=== PATIENT | female | born 1935 | race Caucasian/White ===

== ENCOUNTER 2018-06-22 14:27 | Emergency (ER) | payer MEDICARE, BC, SELFPAY ==
--- NOTE | 2018-06-22 14:31 | W.ED.GENAD ---
Discharge Plan Disposition Patient Disposition: HOME Condition: Good Discharge Details Chief Complaint: Orthopedic Clinical Impression: Right wrist sprain Primary Care Provider: MARCIA LLANOS ED Provider: Michael Pendleton Home Meds and New Rx's Prescriptions: No Action atenolol 25 MG tablet 258 mg PO BID RF: 0 amitriptyline 25 MG tablet 50 mg PO HS RF: 0 ascorbate calcium 500 MG tablet 500 mg PO DAILY RF: 0 multivitamin 1 EACH capsule 1 tab PO DAILY RF: 0 Discharge Instructions Instructions: Wrist Sprain (ED) Additional Instructions: Please take Tylenol and Motrin for pain, please use ice every 15 minutes. Please use the wrist splint as directed. We will contact orthopedics for close follow-up, we will need to be seen and reassessed within the next 2 weeks for repeat evaluation and potential repeat x-ray imaging if you have no improvement of your pain or symptoms. If you notice any worsening of your symptoms, or any new symptoms such as vomiting, diarrhea, fever, chills, shortness of breath, chest pain, numbness, weakness, or fainting , please return immediately to the emergency department for reevaluation. Please follow up with your primary care provider as soon as possible for reassessment and reevaluation. As always, it was a pleasure participating in your medical care today. Referrals: MARCIA LLANOS [Primary Care Provider] - Medical Decision Making This is a very pleasant 82-year-old female who presents for evaluation of right first metacarpal pain after hitting it yesterday on a table. It saved her from a fall. Exam shows no signs of trauma aside for on the hand. Notable limitation of movement of the thumb secondary to pain, notable swelling around the first metacarpal. No blood thinners. We will get an x-ray to evaluate for fracture. We will give Tylenol and Motrin for pain control. 2:58 PM X-ray results have returned, and there are notable osteophytes and chronic degenerative changes over the area of trauma. Because of this I did contact the radiologist Dr. 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 No signs of a significant scaphoid fracture.. I will place the patient in a thumb spica, will also arrange orthopedic follow-up on an outpatient basis for reassessment and repeat radiographs after 1-2 weeks of conservative management. I have extensively reviewed the treatment plan and discharge instructions with the patient. I have addressed all patient concerns at this time. The patient was made aware of what symptoms to monitor for that would warrant a return to the emergency department. Discussed the plan with the patient, they demonstrate verbal understanding and agreement with our assessment and plan at this time. HPI General Date/Time Provider Initiated Documentation: 06/22/18 14:31. HPI Narrative: This is an 82-year-old female with a past medical history of hypertension, who presents today for evaluation after a fall. She is right-hand dominant. patient states that yesterday she was walking and tripped, and she threw her hand forward striking a table with her right wrist over the metacarpal of the thumb and the right hand. This caught her fall and saved her from falling or hitting her head, and a cause no other trauma anywhere else. She had mild pain at the area, and had been taking some aspirin, however this morning she noted significant swelling, and significant worsening of pain. She came to the ER for further evaluation. She denies any blood thinner use aside for the aspirin. She denies any history of recent trauma or surgery aside for this event. She denies any pain in the rest of her hand, or her forearm. Pain is made worse with movement of the thumb, and movement of the thumb is notably limited secondary to the pain. She denies any numbness or tingling. She has no other complaints at this Related Data Home Medications Medication Instructions Recorded Confirmed amitriptyline 50 mg PO HS 02/15/13 02/15/13 ascorbate calcium 500 mg PO DAILY 02/15/13 02/15/13 atenolol 258 mg PO BID 02/15/13 02/15/13 multivitamin 1 tab PO DAILY 02/15/13 02/15/13 Allergies Allergy/AdvReac Type Severity Reaction Status Date / Time No Known Allergies Allergy Unverified 06/22/18 14:46 Review of Systems Review of Systems All systems reviewed & are unremarkable except as noted in HPI and below PFSH Social History Smoking and Tabacco status: Never Exam Narrative Exam Narrative: 1.Const: Well-nourished, Well-developed, appearing stated age 2.Eyes: PERRL, no conjunctival injection, and symmetrical lids. 3.ENT: Atraumatic external nose and ears. Moist MM. Neck: Symmetric, trachea midline, No thyromegaly. 4.CVS: +S1/S2, No murmurs or gallops. Peripheral pulses 2+ and equal in all extremities. Brisk capillary refill in all extremities. 5.RESP: Unlabored respiratory effort. Clear to auscultation bilaterally. No wheezes rales or rhonchi 6.GI: Soft, Nontender/Nondistended, No hepatosplenomegaly. No guarding or rebound. 7.MSK: No cyanosis or clubbing, notable swelling over the first metacarpal on the right hand. Notable pain with palpation as well as some mild pain over the anatomic snuffbox. flexion extension abduction and abduction is notably limited for the thumb secondary to pain. No pain at the interphalangeal joint, normal flexion extension at the joint. Brisk capillary refill, normal sensation including two-point discrimination on all fingers. No other significant abnormalities for the rest of the hand. No pain in the rest of the wrist or the other metacarpals. 8.Skin: Warm, Dry. No rashes or lesions. 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 Sensation grossly intact, no focal neurologic deficits. 10.Psych: (AAO) x3. Appropriate mood and affect
[2018-06-22 14:37] VITALS: BP 157/68; PULSE 60; RESP 16; TEMP 37; O2SAT 98
[2018-06-22] MEDS: Ibuprofen 800 MG TAB 600 MG PO (14:42)
[2018-06-22] MEDS: Acetaminophen 500 MG TAB 1000 MG PO (14:42)
--- NOTE | 2018-06-22 14:52 | DI.RAD_ITS ---
SYMPTOMS/DIAGNOSIS: PAIN, SWELLING THUMB METACARPALS RIGHT WRIST: Three views were obtained. There are severe degenerative changes involving the greater multangular first metacarpal joint. No acute fracture seen.
[2018-06-22 15:10] VITALS: BP 157/68; PULSE 60; RESP 16; TEMP 37; O2SAT 98
== END 2018-06-22 15:05 | disposition home or self-care (01) ==
LOC: ER 15:28
PROVIDERS: Emergency Provider Student in an Organized Health Care Education/Training Program; PCP Internal Medicine
DX: S63.501A Unspecified sprain of right wrist, initial encounter (principal); W01.198A Fall on same level from slipping, tripping and stumbling with subsequent striking against other object, initial encounter
CPT/HCPCS: 99283; 73110; 99282; L3807

== ENCOUNTER → 2018-06-29 10:51 | Outpatient (BNVA) | payer MEDICARE, BC, SELFPAY | PROVIDERS: PCP Internal Medicine; Referring Provider Internal Medicine; Visit Provider Orthopaedic Surgery | DX: M18.11 Unilateral primary osteoarthritis of first carpometacarpal joint, right hand (principal) | CPT/HCPCS: 99201; 99213 ==

== ENCOUNTER → 2018-07-20 10:55 | Outpatient (BNVA) | payer MEDICARE, BC, SELFPAY | PROVIDERS: PCP Internal Medicine; Referring Provider Internal Medicine; Visit Provider Orthopaedic Surgery | DX: M18.11 Unilateral primary osteoarthritis of first carpometacarpal joint, right hand (principal) | CPT/HCPCS: 99211; 99212 ==

== ENCOUNTER 2018-09-28 12:49 | Outpatient (CLI) | payer MEDICARE, BC, SELFPAY ==
[2018-09-28 14:09] LABS: Bilirubin Negative (Negative); Blood Small (Negative); Clarity Sl Cloudy; Glucose Negative (Negative); Ketones Negative (Negative); Leukocyte Esterase Moderate (Negative); Nitrite Negative (Negative); Urobilinogen 0.2 EU/dL (Up TO 0.2)
[2018-09-28 14:42] LABS: C & S Indicated? Yes; WBC >50 HPF (0-5)
== END 2018-09-28 13:09 ==
PROVIDERS: PCP Internal Medicine; Visit Provider Internal Medicine Geriatric Medicine
DX: R39.198 Other difficulties with micturition (principal)
CPT/HCPCS: 87077; 81003; 81015; 87086

== ENCOUNTER 2018-12-26 12:15 | Emergency (ER) | payer MEDICARE, BC, SELFPAY ==
[2018-12-26 12:23] VITALS: PULSE 57; RESP 16; TEMP 36.6; O2SAT 98
[2018-12-26 12:26] VITALS: RESP 15
[2018-12-26 12:27] VITALS: BP 158/88
--- NOTE | 2018-12-26 12:45 | ED.GENADUL_ITS ---
Discharge Plan Disposition Patient Disposition: HOME Condition: Stable Discharge Details Chief Complaint: GenMedical Clinical Impression: Epistaxis Primary Care Provider: Elise Aguilera ED Provider: Deion Ponce Home Meds and New Rx's Prescriptions: New oxymetazoline [Afrin Sinus (oxymetazoline)] 0.05 % spray,non-aerosol 2 spray ABUNDIO Q12H 3 Days RF: 0 No Action aspirin [Adult Aspirin Regimen] 81 mg tablet,delayed release (DR/EC) 81 mg PO DAILY RF: 0 atenolol 25 MG tablet 25 mg PO BID RF: 0 amitriptyline 25 MG tablet 50 mg PO HS RF: 0 ascorbate calcium (vitamin C) 500 MG tablet 500 mg PO DAILY RF: 0 multivitamin 1 EACH capsule 1 tab PO DAILY RF: 0 Discharge Instructions Instructions: Nosebleed (ED) Medical Decision Making 83 yo female with hx of htn on 81mg asa daily comes in with intermittent right nose bleed since last night, denies any symptoms to suggest signfiicant anemia such as weakness, lightheaded/dizziness, chest pain or sob. She has slow oozing from the left nare on exam, will place nasal clamp for 10-15 minutes and if not improving try other therpaies to control the bleeding bleeding ceased with nasal clamp and has some eryrthema of anterior nose but no focal source of bleeding. Will prescribe afrin and have him f/u with ENT and return if bleeding recurs and uncontrolled with nasal clamp Differential Diagnosis anterior vs posterior epistaxis HPI General Mode of arrival: ambulatory . Date/Time Provider Initiated Documentation: 12/26/18 12:26 . Limitations to Documentation: no limitations . Information obtained by: patient . History of Present Illness 83 year old F presents to the emergency department with the chief complaint of nose bleed, described as moderate, Patient started experiencing this day(s) (1) and it has been constant. No relieving factors improve symptom(s), No exacerbating factors reported . Patient notes no other symptoms.. Patient did receive the following treatments prior to arrival, none Related Data Home Medications Medication Instructions Recorded Confirmed amitriptyline 50 mg PO HS 02/15/13 12/26/18 ascorbate calcium (vitamin C) 500 mg PO DAILY 02/15/13 12/26/18 atenolol 25 mg PO BID 02/15/13 12/26/18 multivitamin 1 tab PO DAILY 02/15/13 12/26/18 aspirin 81 mg tablet,delayed 81 mg PO DAILY 06/29/18 12/26/18 release oxymetazoline [Afrin Sinus 2 spray ABUNDIO Q12H 3 Days ml 12/26/18 (oxymetazoline)] Previous Rx's Medication Instructions Recorded oxymetazoline [Afrin Sinus 2 spray ABUNDIO Q12H 3 Days ml 12/26/18 (oxymetazoline)] Allergies Allergy/AdvReac Type Severity Reaction Status Date / Time No Known Allergies Allergy Unverified 07/20/18 11:03 General Stated Complaint: GenMedical MIGUEL ANGEL: 4 Review of Systems Review of Systems All systems reviewed & are unremarkable except as noted in HPI and below Constitutional Denies chills, Denies fever(s) and Denies weakness Cardiovascular Denies chest pain and Denies dyspnea Respiratory Denies cough and Denies dyspnea Gastrointestinal Denies abdominal pain, Denies nausea and Denies vomiting Integumentary/Breasts Denies rash Neurologic Denies weakness PFSH Social History Smoking/Tobacco Use Status: Never Alcohol Intake: never Drug use: Never Substance use type: does not use Do you feel safe in your relationship?: Yes Exam Const General: no acute distress Orientation: alert HENMT Head: normal to inspection Ears: external ears normal General nose exam: epistaxis Mouth: moist mucous membranes Eyes General: appearance normal, both eyes and all related structures Neck Neck: normal visual inspection Resp Effort & Inspection: normal respiratory effort and able to speak in complete sentences Cardio Rate: regular rate Skin General skin exam: no rashes or lesions noted Neuro General: alert and oriented x3 Extrem General: normal to inspection Psych Mental Status: mental status grossly normal Course Vital Signs Temperature 36.6 C 12/26/18 12:23 Pulse 57 L 12/26/18 12:23 Respiratory Rate 16 12/26/18 12:23 Pulse Oximetry 98 12/26/18 12:23 Temperature 36.6 C 12/26/18 12:23 Temperature Source Skin 12/26/18 12:23 Pulse 57 L 12/26/18 12:23 Respiratory Rate 15 12/26/18 12:26 Respiratory Effort 12/26/18 12:26 Respiratory Pattern Normal 12/26/18 12:26 Blood Pressure 158/88 H 12/26/18 12:27 Blood Pressure Position Sitting 12/26/18 12:23 Pulse Oximetry 98 12/26/18 12:23
--- NOTE | 2018-12-28 10:58 | NUR.NOTE ---
Nursing Note: Faxed to [facility] – [place], [place] PCP the MD note. Shakila Kennedy [phone] p to Kary
== END 2018-12-26 13:14 | disposition home or self-care (01) ==
PROVIDERS: Emergency Provider Emergency Medicine; PCP Internal Medicine Geriatric Medicine
DX: R04.0 Epistaxis (principal); I10 Essential (primary) hypertension; Z79.82 Long term (current) use of aspirin
CPT/HCPCS: 30901; 99282

== ENCOUNTER 2019-05-11 15:31 | Emergency (ER) | payer MEDICARE, BC, SELFPAY ==
[2019-05-11 15:38] VITALS: BP 147/79; PULSE 61; RESP 16; TEMP 36.5; O2SAT 97
[2019-05-11 16:18] LABS: Bilirubin Negative (Negative); Blood Moderate (Negative); Clarity Sl Cloudy (Clear); Glucose Negative (Negative); Ketones Negative (Negative); Leukocyte Esterase Moderate (Negative); Nitrite Negative (Negative); Urobilinogen 0.2 EU/dL (Up TO 0.2); pH 5.5 (5-8)
--- NOTE | 2019-05-11 16:22 | W.ED.GENAD ---
Discharge Plan Disposition Patient Disposition: HOME Condition: Improving Discharge Details Chief Complaint: Urinary Clinical Impression: Urinary tract infection Primary Care Provider: Unknown,Unknown ED Provider: Walter Jorgensen Home Meds and New Rx's Prescriptions: New phenazopyridine [Pyridium] 100 mg tablet 100 mg PO TID Qty: 6 RF: 0 cephalexin 500 mg capsule 500 mg PO TID 7 Days Qty: 21 RF: 0 No Action aspirin [Adult Aspirin Regimen] 81 mg tablet,delayed release (DR/EC) 81 mg PO DAILY RF: 0 atenolol 25 MG tablet 25 mg PO BID RF: 0 amitriptyline 25 MG tablet 50 mg PO HS RF: 0 ascorbate calcium (vitamin C) 500 MG tablet 500 mg PO DAILY RF: 0 multivitamin 1 EACH capsule 1 tab PO DAILY RF: 0 Discharge Instructions Instructions: Urinary Tract Infection in Women (ED) Additional Instructions: Small, frequent sips of fluids so that she maintain hydration. May use acetaminophen if needed for discomfort. Please follow-up with urology as previously scheduled. Take antibiotics and Pyridium as prescribed. Return to the emergency department for any acute concerns. Medical Decision Making Delightful 83-year-old female who is here with her daughter, who is staying with her at the patient's home in [place]. The patient had ureter surgery at [facility] on May 02, improved following discharge a day later, but now at postop day 9 has developed a day and a half of burning and frequency of urination. She is well-appearing with normal vital signs her gynecologic exam is reassuring. There is a single intact stitch in the lower vaginal introitus. Her gynecologic exam is otherwise within normal limits. Urinalysis reveals moderate blood, positive leuk esterase, consistent with acute urinary tract infection. Will treat with Pyridium and a course of Keflex. She has pre-standing follow-up in the urology clinic at [facility]. She understands return precautions to the ER in the interim. HPI General Mode of arrival: ambulatory. Date/Time Provider Initiated Documentation: 05/11/19 16:04. Limitations to Documentation: no limitations. Information obtained by: patient. History of Present Illness 83 year old F presents to the emergency department with the chief complaint of Burning with urination for 2 days. Ureter surgery on May 02, described as mild, and is localized to the abdomen, pelvis and genitals. Patient reports no radiation. Patient started experiencing this day(s) and it has been intermittent. No relieving factors improve symptom(s), No exacerbating factors reported . Patient notes other (Mild vaginal bleeding, improving, no fever or vomiting. Normal bowel movements.). Patient did receive the following treatments prior to arrival, none Related Data Home Medications Medication Instructions Recorded Confirmed amitriptyline 50 mg PO HS 02/15/13 12/26/18 ascorbate calcium (vitamin C) 500 mg PO DAILY 02/15/13 12/26/18 atenolol 25 mg PO BID 02/15/13 12/26/18 multivitamin 1 tab PO DAILY 02/15/13 12/26/18 aspirin 81 mg tablet,delayed 81 mg PO DAILY 06/29/18 12/26/18 release cephalexin 500 mg PO TID 7 Days #21 cap 05/11/19 phenazopyridine [Pyridium] 100 mg PO TID #6 tab 05/11/19 Previous Rx's Medication Instructions Recorded cephalexin 500 mg PO TID 7 Days #21 cap 05/11/19 phenazopyridine [Pyridium] 100 mg PO TID #6 tab 05/11/19 Allergies Allergy/AdvReac Type Severity Reaction Status Date / Time No Known Allergies Allergy Unverified 07/20/18 11:03 General Stated Complaint: Urinary MIGUEL ANGEL: 4 Review of Systems Narrative: 6 systems reviewed and otherwise negative [facility] Social History Smoking/Tobacco Use Status: Never Alcohol Intake: never Drug use: Never Substance use type: does not use Do you feel safe at home: Yes Do you feel safe in your relationship?: Yes Exam Narrative Exam Narrative: GEN: awake, alert, oriented 3. Pleasant, well groomed, interactive. HEAD: Normocephalic, atraumatic ENT: Mucous membranes moist, oropharynx unremarkable, External ear exam unremarkable EYES: PERRL, EOMI NECK: Full ROM, no HIEU, no menigismus CHEST/RESP: Nontender, clear to auscultation bilateral, no wheeze/rhonchi/rales CARDIOVASCULAR: RRR, no murmur, rub amanda. 2+ Rad pulse bilateral ABDOMEN: Soft, nontender, no mass. +Bowel sounds BELL VALET: Labia unremarkable, single suture in place inferior vaginal introitus, no bleeding, discharge, erythema EXT: Full ROM, no edema, no rash Neuro: Grossly normal neurologic exam, conversant, interactive. Psych: Speech fluent, thoughts congruent, affect normal Course Vital Signs Vital signs: Vital Signs Temperature 36.5 C 05/11/19 15:38 Pulse 61 05/11/19 15:38 Respiratory Rate 16 05/11/19 15:38 Blood Pressure 147/79 H 05/11/19 15:38 Pulse Oximetry 97 05/11/19 15:38 Temperature 36.5 C 05/11/19 15:38 Temperature Source Skin 05/11/19 15:38 Pulse 61 05/11/19 15:38 Respiratory Rate 16 05/11/19 15:38 Respiratory Effort Non-Labored 05/11/19 15:42 Blood Pressure 147/79 H 05/11/19 15:38 Blood Pressure Position Sitting 05/11/19 15:38 Pulse Oximetry 97 05/11/19 15:38 Oxygen Delivery Method Room Air 05/11/19 15:38 Oxygen Flow Rate 0 05/11/19 15:38 Pain Level 0 05/11/19 15:38 Lab/Test Results Lab/Test Results: Laboratory Tests Range/Units 05/11/19 16:05 Urine Color (Yellow) Yellow Urine Clarity (Clear) Sl cloudy Urine pH (5-8) 5.5 Ur Specific [place] (1.005-1.025) 1.020 Urine Protein (Negative) mg/dL 30 H Urine Ketones (Negative) mg/dL Negative Urine Blood (Negative) Moderate H Urine Nitrite (Negative) Negative Urine Bilirubin (Negative) Negative Urine Urobilinogen (Up TO 0.2) EU/dL 0.2 Ur Leukocyte Esterase (Negative) Moderate H Urine Glucose (Negative) mg/dL Negative
[2019-05-11 16:32] LABS: RBC 20-50 HPF (0-2); WBC >50 HPF (0-5)
[2019-05-11 16:33] LABS: Bacteria Few HPF (Negative); C & S Indicated? Yes; Crystals Negative HPF (Negative); Epithelial Cells Rare HPF (Negative); Mucus Negative (Negative); Other Cells Mod Transitional (Negative)
[2019-05-11] MEDS: Cephalexin 500 MG CAP PO (16:50)
[2019-05-11] MEDS: Phenazopyridine 100 MG TAB, 2 TABS/BTL PO (16:51)
== END 2019-05-11 16:54 | disposition home or self-care (01) ==
PROVIDERS: Emergency Provider Emergency Medicine
DX: N39.0 Urinary tract infection, site not specified (principal); Y83.8 Other surgical procedures as the cause of abnormal reaction of the patient, or of later complication, without mention of misadventure at the time of the procedure
CPT/HCPCS: 87077; 99283; 81003; 81015; 87086; 87186

== ENCOUNTER 2019-05-24 13:59 | Outpatient (CLI) | payer MEDICARE, BC, SELFPAY ==
[2019-05-24 14:27] LABS: Bilirubin Negative (Negative); Blood Moderate (Negative); Clarity Sl Cloudy (Clear); Glucose Negative (Negative); Ketones Negative (Negative); Leukocyte Esterase Large (Negative); Nitrite Negative (Negative); Urobilinogen 0.2 EU/dL (Up TO 0.2); pH 5.5 (5-8)
[2019-05-24 14:42] LABS: C & S Indicated? Yes; WBC >50 HPF (0-5)
== END 2019-05-24 14:19 ==
PROVIDERS: PCP Internal Medicine Geriatric Medicine; Visit Provider Obstetrics & Gynecology Female Pelvic Medicine and Reconstructive Surgery
DX: N39.0 Urinary tract infection, site not specified (principal)
CPT/HCPCS: 87077; 81003; 81015; 87086; 87186

== ENCOUNTER 2019-06-07 10:30 | Outpatient (CLI) | payer MEDICARE, BC, SELFPAY ==
[2019-06-07 12:30] LABS: Bilirubin Negative (Negative); Blood Trace-lysed (Negative); Clarity Clear (Clear); Glucose Negative (Negative); Ketones Negative (Negative); Leukocyte Esterase Moderate (Negative); Nitrite Negative (Negative); Urobilinogen 0.2 EU/dL (Up TO 0.2); pH 5.5 (5-8)
[2019-06-07 12:46] LABS: Bacteria Negative HPF (Negative); C & S Indicated? No; Casts Negative LPF (Negative); Crystals Negative HPF (Negative); Epithelial Cells Rare HPF (Negative); Mucus Negative (Negative); RBC 0-2 HPF (0-2); WBC 0-2 HPF (0-5)
== END 2019-06-07 10:50 ==
PROVIDERS: PCP Internal Medicine Geriatric Medicine; Visit Provider Obstetrics & Gynecology Female Pelvic Medicine and Reconstructive Surgery
DX: N39.0 Urinary tract infection, site not specified (principal)
CPT/HCPCS: 81003; 81015